=== PATIENT | female | born 1975 | race Caucasian/White ===

== ENCOUNTER → 2020-10-02 | Outpatient (CLI) | payer OTHER ==
[~2020-10-02] MED LIST: BMP Blood Test; K-DUR TAB 10 M10 MEQ PO; LASIX40 MG PO
== END ==
LOC: WCC 14:53
PROC: 0JBN0ZZ Excision of Right Lower Leg Subcutaneous Tissue and Fascia, Open Approach (ICD-10-PCS; principal; 2020-10-02)
DX: L89.894 Pressure ulcer of other site, stage 4 (principal); L89.893 Pressure ulcer of other site, stage 3; A48.0 Gas gangrene; L97.212 Non-pressure chronic ulcer of right calf with fat layer exposed; E11.65 Type 2 diabetes mellitus with hyperglycemia; E11.628 Type 2 diabetes mellitus with other skin complications; I21.9 Acute myocardial infarction, unspecified; Z87.891 Personal history of nicotine dependence; Z95.820 Peripheral vascular angioplasty status with implants and grafts
CPT/HCPCS: 87070; 87077; 87186; 87205; G0463

== ENCOUNTER → 2020-10-09 | Outpatient (CLI) | payer OTHER | LOC: WCC 14:39 | PROC: 0JBN0ZZ Excision of Right Lower Leg Subcutaneous Tissue and Fascia, Open Approach (ICD-10-PCS; principal; 2020-10-09) | DX: L89.890 Pressure ulcer of other site, unstageable (principal); A48.0 Gas gangrene; L97.212 Non-pressure chronic ulcer of right calf with fat layer exposed; E11.628 Type 2 diabetes mellitus with other skin complications; E11.65 Type 2 diabetes mellitus with hyperglycemia; I21.9 Acute myocardial infarction, unspecified; Z87.891 Personal history of nicotine dependence; Z95.820 Peripheral vascular angioplasty status with implants and grafts ==